=== PATIENT | female | born 1950 | race Caucasian/White ===

== ENCOUNTER → 2018-06-11 11:51 | Outpatient (CLI) | payer MEDICARE, OTHER, SELFPAY ==
--- NOTE | 2018-06-11 11:58 | RAD_ITS ---
STUDY: X-RAY - PARANASAL SINUSES REASON FOR EXAM: Female, 68 years old. Right-sided sinus pain TECHNIQUE: 3 view(s) of the paranasal sinuses were obtained. COMPARISON: None. FINDINGS: Normal visualized frontal, maxillary, ethmoidal and sphenoid sinuses. Normal visualized facial bones. The soft tissue structures are unremarkable. RAD/Sinuses min 3 Views IMPRESSION: Normal x-rays of the paranasal sinuses. Electronically Signed: Dann Burnett MD at 10:28 EST , Service support ,
== END ==
PROVIDERS: Family Provider Family Medicine; PCP Family Medicine; Referring Provider Family Medicine; Visit Provider Family Medicine
DX: J34.89 Other specified disorders of nose and nasal sinuses (principal)
CPT/HCPCS: 70220

== ENCOUNTER → 2018-11-10 | Outpatient (CLI) | payer MEDICARE, OTHER, SELFPAY ==
[2018-11-10 12:42] LABS: ALB/GLOB Ratio 1.3 RATIO (0.9-2.4); AST(SGOT) 14 U/L (15-37); Alanine Aminotransfer ALT/SGPT 28 U/L (13-56); Alkaline Phosphatase 93 U/L (45-117); Anion Gap 7 (5-15); BUN 13 mg/dL (7-18); BUN/Creat Ratio 16.4 RATIO (10-20); Chloride 108 mmol/L (98-107); Cholesterol 194 mg/dL (200); Creatinine, Serum 0.79 mg/dL (0.55-1.02); EST Glomerular Filtration Rate 76 mL/min (>60); Est Glom Filt Rate - Afr Amer 92 mL/min (>60); Globulin 3.1 g/dL (2.2-4.2); Glucose 115 mg/dL (74-106); High Density Lipoprotein 39 mg/dL; Potassium 4.3 mmol/L (3.5-5.1); Protein, Total 7.1 g/dL (6.4-8.2); Sodium Level 142 mmol/L (136-145); Triglycerides 155 mg/dL; Very Low Density Lipoprotein 31 mg/dL (5-40)
== END | disposition home or self-care (01) ==
PROVIDERS: Family Provider Family Medicine; PCP Family Medicine; Referring Provider Family Medicine; Visit Provider Family Medicine
DX: E78.5 Hyperlipidemia, unspecified (principal); R73.02 Impaired glucose tolerance (oral)
CPT/HCPCS: 36415; 80053; 80061

== ENCOUNTER → 2020-05-22 09:24 | Outpatient (CLI) | payer MEDICARE, OTHER, SELFPAY ==
[2020-05-22 13:06] LABS: ALB/GLOB Ratio 1.3 RATIO (0.9-2.4); AST(SGOT) 15 U/L (15-37); Alanine Aminotransfer ALT/SGPT 25 U/L (13-56); Albumin, Serum 4.3 g/dL (3.2-5.0); Alkaline Phosphatase 92 U/L (45-117); Anion Gap 6 (5-15); BUN 13 mg/dL (7-18); BUN/Creat Ratio 16.5 RATIO (10-20); Chloride 108 mmol/L (98-107); Cholesterol 199 mg/dL (200); Creatinine, Serum 0.79 mg/dL (0.55-1.02); EST Glomerular Filtration Rate 76 mL/min (>60); Est Glom Filt Rate - Afr Amer 92 mL/min (>60); Globulin 3.4 g/dL (2.2-4.2); Glucose 124 mg/dL (74-106); High Density Lipoprotein 41 mg/dL; Protein, Total 7.7 g/dL (6.4-8.2); Sodium Level 141 mmol/L (136-145); Triglycerides 129 mg/dL; Very Low Density Lipoprotein 26 mg/dL (5-40)
== END ==
PROVIDERS: PCP Family Medicine; Visit Provider Family Medicine
DX: I10 Essential (primary) hypertension (principal); E78.5 Hyperlipidemia, unspecified
CPT/HCPCS: 36415; 80053; 80061

== ENCOUNTER → 2020-08-27 09:54 | Outpatient (CLI) | payer MEDICARE, OTHER, SELFPAY ==
[2020-08-27 12:44] LABS: Anion Gap 7 (5-15); BUN 11 mg/dL (7-18); BUN/Creat Ratio 13.7 RATIO (10-20); Calcium,Total 9.3 mg/dL (8.5-10.1); Chloride 107 mmol/L (98-107); EST Glomerular Filtration Rate 75 mL/min (>60); Est Glom Filt Rate - Afr Amer 90 mL/min (>60); Glucose 119 mg/dL (74-106); Sodium Level 142 mmol/L (136-145)
== END ==
PROVIDERS: PCP Family Medicine; Referring Provider Family Medicine; Visit Provider Family Medicine
DX: I10 Essential (primary) hypertension (principal)
CPT/HCPCS: 36415; 80048

== ENCOUNTER → 2021-11-25 | Outpatient (CLI) | payer MEDICARE, OTHER, SELFPAY ==
[2021-11-25 12:45] LABS: ALB/GLOB Ratio 1.1 RATIO (0.9-2.4); AST(SGOT) 17 U/L (15-37); Alanine Aminotransfer ALT/SGPT 31 U/L (13-56); Albumin, Serum 3.9 g/dL (3.2-5.0); Alkaline Phosphatase 76 U/L (45-117); Anion Gap 6 (5-15); BUN 11 mg/dL (7-18); BUN/Creat Ratio 13.9 RATIO (10-20); Calcium,Total 9.2 mg/dL (8.5-10.1); Chloride 106 mmol/L (98-107); Cholesterol 183 mg/dL (200); Creatinine, Serum 0.79 mg/dL (0.55-1.02); EST Glomerular Filtration Rate 75 mL/min (>60); Est Glom Filt Rate - Afr Amer 91 mL/min (>60); Globulin 3.4 g/dL (2.2-4.2); Glucose 131 mg/dL (74-106); High Density Lipoprotein 34 mg/dL; Potassium 4.1 mmol/L (3.5-5.1); Protein, Total 7.3 g/dL (6.4-8.2); Sodium Level 139 mmol/L (136-145); Triglycerides 146 mg/dL; Very Low Density Lipoprotein 29 mg/dL (5-40)
== END | disposition home or self-care (01) ==
LOC: MFPLAB 10:47
PROVIDERS: PCP Family Medicine; Visit Provider Family Medicine
DX: E78.5 Hyperlipidemia, unspecified (principal)
CPT/HCPCS: 36415; 80053; 80061

== ENCOUNTER → 2021-11-27 | Outpatient (CLI) | payer MEDICARE, OTHER, SELFPAY ==
--- NOTE | 2021-11-27 09:59 | BD_ITS ---
STUDY: DUAL ENERGY X-RAY ABSORPTIOMETRY / DXA REASON FOR EXAM: Female, 71 years old. [id number]. Patient is postmenopausal. TECHNIQUE: Bone Mineral Density (BMD) measurements of lumbar spine and bilateral hips were obtained. COMPARISON: None. FINDINGS: Lumbar Spine (L1-L4): g/cm2 (1.295) / T-score (2.2) / Z-score (4.5) Findings are suggestive of normal bone density with a low fracture risk. Left Femur Total: g/cm2 (0.917) / T-score (-0.2) / Z-score (1.5) Left Femoral Neck: g/cm2 (0.733) / T-score (-1.0) / Z-score (0.9) Right Femur Total: g/cm2 (0.954) / T-score (0.1) / Z-score (1.8) Right Femoral Neck: g/cm2 (0.762) / T-score (-0.8) / Z-score (1.2) BD/Dexa Bone Density Study IMPRESSION: The patient is considered normal as outlined below according to World Filippo Organization (WHO) criteria with a low fracture risk. Reference Information: The T-score is the number of standard deviations above or below the standard which is normal for young adults at their peak bone mineral density. The World Health Organization (WHO) interprets the T-scores as follows: Above -1 Normal bone density Between -1 and -2.5 Osteopenia Equal to / or below -2.5 Osteoporosis As a practical clinical guideline, osteopenia may be graded as follows: Mild -1 through -1.5 Moderate -1.6 through -2.0 Severe -2.1 through -2.4 The Z-score is the number of standard deviations above or below age-matched controls. A Z-score of less than -1.5 would be considered abnormal. References: 1. NIH Osteoporosis and Related Bone Diseases www osteo.org 2. International Society for Clinical Densitometry www iscd.org 3. National Osteoporosis Foundation www nof.org Electronically Signed: Jimmy Cole MD at 8:10 EDT ,
== END | disposition home or self-care (01) ==
LOC: OPBD 09:51
PROVIDERS: PCP Family Medicine; Referring Provider Family Medicine; Visit Provider Family Medicine
DX: Z00.00 Encounter for general adult medical examination without abnormal findings (principal); Z78.0 Asymptomatic menopausal state
CPT/HCPCS: 77080

== ENCOUNTER 2022-03-01 15:07 | Emergency (ER) | payer MEDICARE, OTHER, SELFPAY ==
[2022-03-01 15:09] VITALS: BP 131/80; PULSE 108; RESP 16; TEMP 37; O2SAT 92; BMI 27.8
--- NOTE | 2022-03-01 16:20 | RAD_ITS ---
STUDY: X-RAY CHEST REASON FOR EXAM: Female, 71 years old. cough TECHNIQUE: PA and lateral views of the chest. COMPARISON: None. FINDINGS: The lungs are clear and expanded. There is no demonstrated pleural abnormality. Normal size heart. Normal mediastinum and clinton. Normal visualized pulmonary arteries. Normal visualized aortic arch and descending thoracic aorta. Normal visualized thoracic spine. Normal visualized ribs, clavicles, and shoulders. There is no demonstrated abnormality of the visualized soft tissue structures of the upper abdomen. RAD/Chest PA and Lateral IMPRESSION: Normal x-ray examination of the chest. Electronically Signed: Brenden Lamar MD at 17:40 EDT ,
--- NOTE | 2022-03-01 16:20 | EKG12_ITS ---
Test Reason : GEN ILLNESS Blood Pressure : / mmHG Vent. Rate : 101 BPM Atrial Rate : 101 BPM P-R Int : 164 ms QRS Dur : 076 ms QT Int : 342 ms P-R-T Axes : 058 015 032 degrees QTc Int : 443 ms Sinus tachycardia Otherwise normal ECG Confirmed by HOLLI PEREIRA, GARY ([id number]), photographic editor SPENCER SCOTT ([id number]) on 03/03/2022 11:16:45 AM Referred By: LYUDMILA Confirmed By:GARY DE LA GARZA MD
--- NOTE | 2022-03-01 16:20 | EX.ED.DYSGE1 ---
HPI History of Present Illness Chief Complaint: General Illness Informant: patient Onset/Context/Timing Onset: Yesterday Narrative Narrative: Yesterday reported sore throat cough fever headaches. Nausea and vomiting x3 today. No hematemesis. No diarrhea. Currently not nauseated. COVID vaccinated with booster. Denies sick contacts. Denies COVID infections in the past. History of hypertension hyperlipidemia. Denies urinary symptoms. Denies chest or abdominal pain. Prior similar symptoms: No PFSH PFSH Medical History HTN (hypertension) Hyperlipemia Home Medications atorvastatin 20 mg tablet 20 mg PO DAILY 03/01/22 [History Last Taken Unknown] dexamethasone 6 mg tablet 6 mg PO DAILY #9 tabs 03/01/22 [Rx Last Taken Unknown] lisinopril 30 mg tablet 30 mg PO DAILY 03/01/22 [History Last Taken Unknown] nirmatrelvir 300 mg (150 mg x2)-ritonavir 100 mg tablet,dose pack(EUA) (Paxlovid) See Rx Instructions PO .COMPLEX #30 tabs 03/01/22 [Rx Last Taken Unknown] ondansetron 4 mg disintegrating tablet 4 mg PO Q6H PRN nausea and vomiting #10 tabs 03/01/22 [Rx Last Taken Unknown] Allergy/AdvReac Type Severity Reaction Status Date / Time ciprofloxacin [From Cipro] Allergy Hives Verified 03/01/22 15:08 Social History Smoking Status: Never smoker ROS ROS ED Constitutional Constitutional ED: Reports fever(s); Denies chills or sweats Eyes Eyes: Denies change in vision ENT ENT ED: Reports sore throat; Denies dysphagia Cardiovascular Cardiovascular: Denies chest pain, leg edema, palpitations or racing heartbeat Respiratory/Chest Respiratory/Chest: Reports cough; Denies dyspnea or dyspnea on exertion Gastrointestinal Gastrointestinal: Reports nausea and vomiting; Denies abdominal pain or diarrhea Genitourinary Genitourinary ED: Denies dysuria, hematuria or urinary frequency Musculoskeletal Musculoskeletal: Denies back pain, extremity pain or neck pain Integumentary Denies rash or wounds Neurologic Neurologic: Reports headache(s); Denies paresthesias or weakness EXAM Physical Exam Const Vital Signs: 03/01/22 15:09 03/01/22 15:40 03/01/22 16:33 Temperature 98.6 F 98.6 F Temperature Source Temporal Oral Pulse Rate 108 H 91 Respiratory Rate 16 17 Respiratory Effort Short of Breath Blood Pressure 131/80 H 131/80 H Blood Pressure Mean 97 97 Pulse Ox 92 95 Oxygen Delivery Method Room Air Room Air 03/01/22 19:07 Temperature Temperature Source Pulse Rate 85 Respiratory Rate Respiratory Effort Blood Pressure 110/76 Blood Pressure Mean 87 Pulse Ox 94 Oxygen Delivery Method Room Air Positive well nourished and well developed General Appearance ED: well developed and NAD HEENT HEENT Narrative: Mild dry mucosal membranes normocephalic and atraumatic Eyes PERRL, EOMs intact bilaterally and conjunctivae normal General Eye ED: Yes normal appearance of both eyes Neck no lymphadenopathy and supple General: Negative for tenderness Chest Wall Chest: Negative for tenderness Resp normal respiratory effort and normal air movement Effort and Inspection: symmetric chest movement; Negative for respiratory distress Cardio regular rhythm and no murmurs Rate: tachycardic Peripheral Pulses: pulses 2+ throughout GI normal to inspection, nondistended, normoactive bowel sounds and non-tender Palpation: Negative for guarding or rebound tenderness present Back/Spine no CVA tenderness and no thoracic nor lumbar tenderness Extremity normal to inspection General Extremety ED: Negative for edema or tenderness General Extremity: Negative for edema Neuro oriented x3 and no sensory deficits noted Sensorium / Orientation: awake and alert Skin no rashes or lesions noted and no wounds MDM MDM MDM Narrative Medical decision making narrative: Patient presented with COVID symptoms. Pulse ox 92% on arrival. Chest x-ray reviewed by myself and read by radiology shows no acute process. COVID test returned positive. She was ambulated with her pulse ox remained at 94%. Heart rate improved with fluids. She is within the window for treatment for her COVID. Discussed treatment with her she would like to pursue. With her pulse ox less than 94 dexamethasone was started she is also given meds to beds with Paxlovid. She will hold her statin to avoid myalgias. Return precautions discussed. All questions were answered. Lab Data Attestation: I reviewed the patient's lab results. Labs: Laboratory Results - last 24 hr 03/01/22 03/01/22 15:37 15:37 WBC 6.1 RBC 4.08 L Hgb 12.8 Hct 37.0 MCV 90.7 MCH 31.4 MCHC 34.6 RDW Std Deviation 39.6 RDW Coeff of Joseph 11.9 Plt Count 150 MPV 10.8 Immature Gran % (Auto) 0.300 Neut % (Auto) 84.8 H Lymph % (Auto) 4.1 L [place] % (Auto) 9.6 Eos % (Auto) 0.5 Baso % (Auto) 0.7 Absolute Neuts (auto) 5.2 Absolute Lymphs (auto) 0.25 L Nucleated RBC % 0 Differential Comment SEE COMMENT Platelet Estimate ADEQUATE RBC Morphology N CHROM Anisocytosis RARE Macrocytosis RARE Sodium 139 Potassium 3.6 Chloride 105 Carbon Dioxide 25.0 Anion Gap 9 BUN 10 Creatinine 0.91 Estim Creat Clear Calc 43.55 Est GFR (MDRD) Af Amer 78 Est GFR (MDRD) Non-Af 65 BUN/Creatinine Ratio 11.0 Glucose 157 H Calcium 9.0 Total Bilirubin 0.60 AST 15 ALT 22 Alkaline Phosphatase 69 Total Protein 6.7 Albumin 3.7 Globulin 3.0 Albumin/Globulin Ratio 1.2 Radiography Diagnostic Testing: Clinical Impression(s) from Imaging Studies Chest X-Ray 03/01/22 16:20 IMPRESSION: Normal x-ray examination of the chest. Electronically Signed: Brenden Lamar MD at 17:40 EDT , EKG Initial EKG: Comments: Sinus rate of 101, no ST or T wave changes. Discharge Plan Triage Chief Complaint: General Illness ED Provider: Timbo Shah Dx/Rx/DC Orders Clinical Impression: COVID-19 virus infection, Cough, Nausea & vomiting Instructions: Coronavirus Disease 2019 (COVID-19): Caring for Yourself or Others Prescriptions: New Paxlovid (EUA) 300 mg (150 mg x 2)-100 mg tablets,dose pack See Rx Instructions .ROUTE .COMPLEX Qty: 30 0RF Rx Instructions: take TWO 150 mg tablets of nirmatrelvir with ONE 100 mg tablet of ritonavir twice daily for 5 days dexamethasone 6 mg tablet 6 mg PO DAILY Qty: 9 0RF ondansetron 4 mg tablet,disintegrating 4 mg PO Q6H PRN (Reason: nausea and vomiting) Qty: 10 0RF No Action atorvastatin 20 mg tablet 20 mg PO DAILY Label Comments: TAKE 1 TABLET BY MOUTH EVERY DAY lisinopril 30 mg tablet 30 mg PO DAILY Label Comments: TAKE 1 TABLET BY MOUTH EVERY DAY Primary Care Provider: Brennon Lloyd Referrals: Brennon Lloyd MD [Primary Care Provider] - 1 Week if not improving Activity Restrictions/Additional Instructions: Take medications as prescribed. Monitor for worsening symptoms. Return if any worsening respiratory distress. May benefit if you obtain a pulse oximeter to check your pulse ox if it drops below 88% for return. Hold your atorvastatin while taking Paxlovid. Disposition Disposition: Home, Self Care Discharge Date/Time: 03/01/22 19:19
[2022-03-01 16:33] VITALS: BP 131/80; PULSE 91; RESP 17; TEMP 37; O2SAT 95
[2022-03-01 16:41] LABS: Absolute Lymphocyte Count 0.25 X10^3/uL (0.83-4.51); Absolute Neutrophil Count 5.2 X10^3/uL (2.0-7.7); Basophil# 0.04 X10^3/uL; Basophil% 0.7 % (0-1); Eosinophil# 0.03 X10^3/uL; Eosinophils% 0.5 % (0-5); Hemoglobin 12.8 g/dL (12.0-15.0); Lymphocyte # 0.25 X10^3/ul (0.83-4.51); Lymphocyte % 4.1 % (19-41); Mean Corp Hgb Conc 34.6 g/dL (32-36); Mean Corpuscular Hgb 31.4 pg (27.0-32.0); Mean Corpuscular Volume 90.7 fL (81-99); Mean Platelet Vol. 10.8 fl (6.2-12.0); Monocyte# 0.58 X10^3/uL; Monocyte% 9.6 % (0-10); NRBC Flagged by Analyzer 0 % (0-5); Neutrophil # 5.15 X10^3/uL (2.7-7.7); Neutrophil % 84.8 % (47-70); POSITIVE DIFFERENTIAL YES; Platelet Count 150 K/mm3 (150-450); RBC Distribution Width CV 11.9 % (11.6-14.6); RBC Distribution Width SD 39.6 fl (35.1-43.9); Red Blood Count 4.08 M/mm3 (4.2-5.4); White Blood Count 6.1 K/mm3 (4.4-11.0)
[2022-03-01 16:42] LABS: Differential Indicated SCAN CRITERIA MET
[2022-03-01] MEDS: 0.9% Normal Saline 1,000 ML 1000 ML IV (16:48)
[2022-03-01 16:55] LABS: ALB/GLOB Ratio 1.2 RATIO (0.9-2.4); AST(SGOT) 15 U/L (15-37); Alanine Aminotransfer ALT/SGPT 22 U/L (13-56); Albumin, Serum 3.7 g/dL (3.2-5.0); Alkaline Phosphatase 69 U/L (45-117); Anion Gap 9 (5-15); BUN 10 mg/dL (7-18); Chloride 105 mmol/L (98-107); Creatinine, Serum 0.91 mg/dL (0.55-1.02); EST Glomerular Filtration Rate 65 mL/min (>60); Est Glom Filt Rate - Afr Amer 78 mL/min (>60); Estimated Creatinine Clearance 43.55 ml/min; Glucose 157 mg/dL (74-106); Potassium 3.6 mmol/L (3.5-5.1); Protein, Total 6.7 g/dL (6.4-8.2); Sodium Level 139 mmol/L (136-145)
[2022-03-01 17:20] LABS: Anisocytosis RARE; Macrocytosis RARE; Platelet Estimate ADEQUATE (ADEQ); Red Cell Morphology N CHROM NORMAL (NORM C&C)
[2022-03-01] MEDS: Acetaminophen 325 MG Tablet 1000 MG PO (17:33)
[2022-03-01] MEDS: Ondansetron 4 MG/2 ML Vial IV (17:33)
[2022-03-01] MEDS: dexAMETHasone 4 MG Tablet 6 MG PO (19:02)
[2022-03-01 19:07] VITALS: BP 110/76; PULSE 85; O2SAT 94
== END 2022-03-01 19:19 | disposition home or self-care (01) ==
PROVIDERS: Emergency Provider Emergency Medicine; PCP Family Medicine; Visit Provider Emergency Medicine
DX: U07.1 COVID-19 (principal); E78.5 Hyperlipidemia, unspecified; I10 Essential (primary) hypertension; Z79.899 Other long term (current) drug therapy; R11.2 Nausea with vomiting, unspecified; R05.9 Cough, unspecified
CPT/HCPCS: 71046; 80053; 85025; 87811; 93005; 96361; 96374; 99284; J7030; A4216; J2405

== ENCOUNTER → 2023-09-02 | Outpatient (CLI) | payer MEDICARE, OTHER, SELFPAY ==
[2023-09-02 13:00] LABS: ALB/GLOB Ratio 1.1 RATIO (0.9-2.4); AST(SGOT) 31 U/L (15-37); Alanine Aminotransfer ALT/SGPT 59 U/L (13-56); Albumin, Serum 3.9 g/dL (3.2-5.0); Alkaline Phosphatase 92 U/L (45-117); Anion Gap 4 (5-15); BUN 12 mg/dL (7-18); Calcium,Total 9.1 mg/dL (8.5-10.1); Chloride 107 mmol/L (98-107); Cholesterol 201 mg/dL (200); Creatinine, Serum 0.86 mg/dL (0.55-1.02); EST Glomerular Filtration Rate 69 mL/min (>60); Est Glom Filt Rate - Afr Amer 83 mL/min (>60); Globulin 3.4 g/dL (2.2-4.2); Glucose 130 mg/dL (74-106); High Density Lipoprotein 32 mg/dL; Protein, Total 7.3 g/dL (6.4-8.2); Sodium Level 139 mmol/L (136-145); Thyroid Stim Hormone (TSH) 1.38 uIU/mL (0.358-3.74); Triglycerides 174 mg/dL; Very Low Density Lipoprotein 35 mg/dL (5-40)
== END | disposition home or self-care (01) ==
LOC: MFPLAB 11:03
PROVIDERS: PCP Family Medicine; Visit Provider Family Medicine
DX: E11.9 Type 2 diabetes mellitus without complications (principal)
CPT/HCPCS: 36415; 80053; 80061; 84443

== ENCOUNTER → 2024-09-07 | Outpatient (CLI) | payer MEDICARE, OTHER, SELFPAY ==
[2024-09-07 17:59] LABS: ALB/GLOB Ratio 1.7 RATIO (0.9-2.4); AST(SGOT) 21 U/L (<=31); Alanine Aminotransfer ALT/SGPT 23 U/L (<=34); Albumin, Serum 4.5 g/dL (3.4-4.8); Alkaline Phosphatase 86 U/L (35-104); Anion Gap 13 (5-15); BUN 9 mg/dL (4-19); BUN/Creat Ratio 12.9 RATIO (10-20); Calcium,Total 9.4 mg/dL (7.6-11.0); Chloride 104 mmol/L (98-108); Cholesterol 184 mg/dL (<=200); Creatinine, Serum 0.69 mg/dL (0.70-1.20); EST Glomerular Filtration Rate 90 (>60); Globulin 2.6 g/dL (2.2-4.2); Glucose 129 mg/dL (70-99); High Density Lipoprotein 41 mg/dL; Low Density Lipoprotein Calc. 114 mg/dL; Protein, Total 7.1 g/dL (5.9-8.4); Sodium Level 139 mmol/L (133-145); Total Bilirubin 0.58 mg/dL (0.00-1.30); Triglycerides 141 mg/dL; Very Low Density Lipoprotein 28 mg/dL (5-40); cholesterol:hdl ratio screen 4.44
[2024-09-07 19:26] LABS: Microalbumin,Random Urine < 12.0 mg/L (NO RANGE EST.)
[2024-09-08 00:08] LABS: Microalbumin:Creatinine Ratio UNABLE TO CALCULATE mg/g CRE
== END | disposition home or self-care (01) ==
LOC: MFPLAB 11:39
PROVIDERS: PCP Family Medicine; Referring Provider Family Medicine; Visit Provider Family Medicine
DX: E11.9 Type 2 diabetes mellitus without complications (principal)
CPT/HCPCS: 36415; 80053; 80061; 82043; 82570; 84443

== ENCOUNTER → 2024-10-03 | Outpatient (CLI) | payer MEDICARE, OTHER, SELFPAY ==
--- NOTE | 2024-10-03 16:07 | MRI_ITS ---
PROCEDURE: BRAIN W/WO CONTRAST 10/03/2024 REASON FOR EXAM: HEARING LOSS TECHNIQUE: Brain MRI without and with intravenous contrast with additional dedicated imaging of the IACs. CONTRAST: 14 CC of Clariscan were injected intravenously. COMPARISON: None. FINDINGS: Moderate effusion in the right middle ear cavity. Moderate effusion in the right mastoid air cells. No mass lesion is identified. No abnormal postcontrast enhancement is noted. Multiple T2 hyperintense foci in the periventricular and subcortical white matter suggestive of moderate chronic ischemic white matter disease. Benign chronic mucus retention cyst in the right maxillary sinus measuring 1 cm. The ventricles and extra-axial spaces are normal for the patient's age. No abnormality is identified in the basal ganglia and thalami. No abnormality is identified in the brainstem. Unremarkable cerebellum. There is no midline shift or brain herniation. There is no demonstrated extra-axial, intraparenchymal, or intraventricular hemorrhage. There are no abnormal intra-or extra-axial fluid collections. There are no areas of restricted diffusion to suggest acute ischemia. The cerebellopontine angles, internal auditory canals and the cisternal portions of the accoustico - facial nerves are unremarkable. Unremarkable exam of the skull. Normal soft tissue structures. The remaining visualized paranasal sinuses and left mastoid air cells are clear. The visualized portions of the orbits are unremarkable. No abnormal postcontrast enhancement is noted. MRI/Brain W/WO Contrast IMPRESSION: 1. Moderate effusion in the right middle ear cavity. 2. Moderate effusion in the right mastoid air cells. 3. No mass lesion is identified. 4. No abnormal postcontrast enhancement is noted. 5. Multiple T2 hyperintense foci in the periventricular and subcortical white m atter suggestive of moderate chronic ischemic white matter disease. 6. Benign chronic mucus retention cyst in the right maxillary sinus measuring 1 cm. Reading Location[facility]
== END | disposition home or self-care (01) ==
LOC: MRI 15:40
PROVIDERS: PCP Family Medicine; Referring Provider Family Medicine; Visit Provider Family Medicine
DX: H90.A11 Conductive hearing loss, unilateral, right ear with restricted hearing on the contralateral side (principal)
CPT/HCPCS: 70553; A9575

== ENCOUNTER → 2024-10-26 | Outpatient (CLI) | payer MEDICARE, OTHER, SELFPAY ==
--- NOTE | 2024-10-26 07:55 | EKG12_ITS ---
Test Reason : PREOP Blood Pressure : */* mmHG Vent. Rate : 66 BPM Atrial Rate : 66 BPM P-R Int : 158 ms QRS Dur : 80 ms QT Int : 416 ms P-R-T Axes : 39 7 19 degrees QTcB Int : 436 ms Normal sinus rhythm Normal ECG Confirmed by Drew Beck ([id number]), graphics editor NADEGE TRUJILLO ([id number]) on 10/28/2024 12:12:33 PM Referred By: Rafa Khanna Confirmed By: Drew Beck
[2024-10-26 09:35] LABS: Hematocrit 41.8 % (37-47); Hemoglobin 14.4 g/dL (12.0-15.0); Mean Corp Hgb Conc 34.4 g/dL (32-36); Mean Corpuscular Hgb 31.5 pg (27.0-32.0); Mean Corpuscular Volume 91.5 fL (81-99); Mean Platelet Vol. 10.9 fl (6.2-12.0); Platelet Count 205 K/mm3 (150-450); RBC Distribution Width CV 12.3 % (11.6-14.6); Red Blood Count 4.57 M/mm3 (4.2-5.4); White Blood Count 6.8 K/mm3 (4.4-11.0)
[2024-10-26 10:24] LABS: Anion Gap 11 (5-15); BUN 18 mg/dL (4-19); BUN/Creat Ratio 20.7 RATIO (10-20); Calcium,Total 9.4 mg/dL (7.6-11.0); Carbon Dioxide 24.9 mmol/L (21.0-32.0); Chloride 104 mmol/L (98-108); Creatinine, Serum 0.86 mg/dL (0.70-1.20); EST Glomerular Filtration Rate 70 (>60); Glucose 130 mg/dL (70-99); Potassium 4.4 mmol/L (3.3-5.1); Sodium Level 140 mmol/L (133-145)
== END | disposition home or self-care (01) ==
LOC: PSN 07:53
PROVIDERS: PCP Family Medicine; Referring Provider Otolaryngology; Visit Provider Otolaryngology
DX: Z01.812 Encounter for preprocedural laboratory examination (principal); Z01.810 Encounter for preprocedural cardiovascular examination
CPT/HCPCS: 36415; 80048; 85027; 93005

== ENCOUNTER → 2024-12-12 | Outpatient (CLI) | payer MEDICARE, OTHER, SELFPAY ==
[2024-12-12 16:37] LABS: Microalbumin,Random Urine < 12.0 mg/L (NO RANGE EST.); Microalbumin:Creatinine Ratio UNABLE TO CALCULATE mg/g CRE
== END | disposition home or self-care (01) ==
LOC: LABSPEC 15:23
PROVIDERS: PCP Family Medicine; Referring Provider Family Medicine; Visit Provider Family Medicine
DX: E11.9 Type 2 diabetes mellitus without complications (principal)
CPT/HCPCS: 82043; 82570

== ENCOUNTER → 2024-12-27 | Outpatient (CLI) | payer MEDICARE, OTHER, SELFPAY ==
--- NOTE | 2024-12-27 15:33 | BI_ITS ---
EXAM: SCRN MAMM (CAD)W/EMERSON BILAT DATE: 12/27/2024 CLINICAL HISTORY: F, Age 74 y/o , SCREENING TECHNIQUE: SCRN MAMM (CAD)W/EMERSON BILAT COMPARISON: None available FINDINGS: TISSUE DENSITY: The breasts are heterogeneously dense, which may obscure small masses. Bilateral Breast Mammographic Findings: Right breast: There is a mass in the central outer right breast posterior depth. There is an asymmetry in the central right breast mid depth on the right MLO view. Left breast: No suspicious masses, calcifications or other abnormalities are identified. BI/SCRN MAMM (CAD)W/EMERSON BILAT IMPRESSION: Additional diagnostic imaging is recommended of the right breast. No mammographic evidence of malignancy in the left breast. OVERALL FINAL ASSESSMENT BI-RADS 0: INCOMPLETE - NEED ADDITIONAL IMAGING EVALUATION. RECOMMENDATION: Additional Views obtained/call backs A letter with findings and recommendations will be mailed to the patient. Reading Location: [id number]
--- NOTE | 2024-12-27 15:47 | BD_ITS ---
PROCEDURE: DEXA BONE DENSITY STUDY 12/27/2024 REASON FOR EXAM: F, age 74 y/o . Postmenopausal. TECHNIQUE: DEXA BONE DENSITY STUDY COMPARISON: Prior study dated November 27, 2021. FINDINGS: BMD and T-SCORES Lumbar spine: 1.274 g/cm2, T-score 2.0 Levels: L1 through L4 Change from prior: Loss of 1.6%. Left femoral neck: 0.732 g/cm2, T-score -1.1 Femoral neck comparison data not recommended for monitoring change. Left total hip: 0.905 g/cm2, T-score -0.3 Change from prior: Loss of 1.3%. Right femoral neck: 0.764 g/cm2, T-score -0.8 Femoral neck comparison data not recommended for monitoring change. Right total hip: 0.897 g/cm2, T-score -0.4 Change from prior: Loss of 5.9%. The World Health Organization has defined the following categories based on bone density: Normal bone density: T-score equal to or greater than -1.0 Osteopenia: T-score between -1.0 and -2.5 Osteoporosis: T-score equal to or less than -2.5 The patient does meet the pharmacological treatment recommendations for prevention of osteoporosis. BD/Dexa Bone Density Study IMPRESSION: OSTEOPENIA. Recommend follow-up as clinically warranted. Reading Location: [place] [id number]
== END | disposition home or self-care (01) ==
LOC: OPBD 15:31
PROVIDERS: PCP Family Medicine; Referring Provider Family Medicine; Visit Provider Family Medicine
DX: Z00.00 Encounter for general adult medical examination without abnormal findings (principal); Z12.31 Encounter for screening mammogram for malignant neoplasm of breast; M85.89 Other specified disorders of bone density and structure, multiple sites
CPT/HCPCS: 77063; 77067; 77080

== ENCOUNTER → 2025-01-04 | Outpatient (CLI) | payer MEDICARE, OTHER, SELFPAY ==
--- NOTE | 2025-01-04 09:32 | BI_ITS ---
EXAM: DIAG MAMM W/CAD, UNILAT; RT BRST UNILAT EMERSON ADD-ON; BREAST LIMITED UNILATERAL 01/04/2025 CLINICAL HISTORY: 74-year-old female presents for follow-up of the right breast findings seen on examination of 12/27/2024. There is no family history of breast cancer. TECHNIQUE: DIAG MAMM W/CAD, UNILAT; RT BRST UNILAT EMERSON ADD-ON; BREAST LIMITED UNILATERAL. COMPARISON: Prior exam(s) dated 12/27/2024. FINDINGS: MAMMOGRAM: TISSUE DENSITY: There are scattered areas of fibroglandular density. Unilateral Right Breast Mammographic Findings: 1. Follow-up examination performed for the mass in the right breast seen on examination of 12/27/2024. On the present examination, the mass in the central outer right breast at posterior depth persist. 2. Follow-up examination performed for the asymmetry in the right breast seen on examination of 12/27/2024. On the present examination, the asymmetry in the central right breast at mid depth partially effaces. ULTRASOUND: 1. There is a cystic mass with a thick internal septation in the right breast at 8 o'clock 7 cm from the nipple, measuring 0.4 x 0.3 x 0.3 cm. This is the likely correlate for the mammographic finding. 2. There is a dilated ducts in the retroareolar right breast, this is the likely correlate for the mammographic finding. BI/Rt Brst Unilat Emerson Add-On IMPRESSION: 1. The cystic mass with thick internal septation in the right breast is suspic ious. Recommend tissue sampling with ultrasound-guided core needle biopsy. OVERALL FINAL ASSESSMENT BI-RADS 4: SUSPICIOUS ABNORMALITY. RECOMMENDATION: Biopsy Recommended A letter with findings and recommendations will be mailed to the patient. Reading Location: [id number]
--- NOTE | 2025-01-04 09:32 | BI_ITS ---
EXAM: DIAG MAMM W/CAD, UNILAT; RT BRST UNILAT EMERSON ADD-ON; BREAST LIMITED UNILATERAL 01/04/2025 CLINICAL HISTORY: 74-year-old female presents for follow-up of the right breast findings seen on examination of 12/27/2024. There is no family history of breast cancer. TECHNIQUE: DIAG MAMM W/CAD, UNILAT; RT BRST UNILAT EMERSON ADD-ON; BREAST LIMITED UNILATERAL. COMPARISON: Prior exam(s) dated 12/27/2024. FINDINGS: MAMMOGRAM: TISSUE DENSITY: There are scattered areas of fibroglandular density. Unilateral Right Breast Mammographic Findings: 1. Follow-up examination performed for the mass in the right breast seen on examination of 12/27/2024. On the present examination, the mass in the central outer right breast at posterior depth persist. 2. Follow-up examination performed for the asymmetry in the right breast seen on examination of 12/27/2024. On the present examination, the asymmetry in the central right breast at mid depth partially effaces. ULTRASOUND: 1. There is a cystic mass with a thick internal septation in the right breast at 8 o'clock 7 cm from the nipple, measuring 0.4 x 0.3 x 0.3 cm. This is the likely correlate for the mammographic finding. 2. There is a dilated ducts in the retroareolar right breast, this is the likely correlate for the mammographic finding. BI/DIAG MAMM W/CAD, UNILAT IMPRESSION: 1. The cystic mass with thick internal septation in the right breast is suspic ious. Recommend tissue sampling with ultrasound-guided core needle biopsy. OVERALL FINAL ASSESSMENT BI-RADS 4: SUSPICIOUS ABNORMALITY. RECOMMENDATION: Biopsy Recommended A letter with findings and recommendations will be mailed to the patient. Reading Location: [id number]
== END | disposition home or self-care (01) ==
LOC: OPBI 09:29
PROVIDERS: PCP Family Medicine; Referring Provider Family Medicine; Visit Provider Family Medicine
DX: N63.13 Unspecified lump in the right breast, lower outer quadrant (principal)
CPT/HCPCS: 76642; 77061; 77065; G0279

== ENCOUNTER → 2025-01-19 | Outpatient (CLI) | payer MEDICARE, OTHER, SELFPAY ==
--- NOTE | 2025-01-19 | BRBX_PTH ---
PATIENT: MILIND AMADOR LOC: [facility] U#:[id number] AGE/SX: 74/F ROOM: RE01/19/[address]: Dr. Malathi Trujillo MD : [id number] BED: DIS: 01/19/2025 SPEC #: [id number] RECD: 01/19/25 13:33 STATUS: REGINA RELloyd #: [id number] RODO: 01/19/25 00:[address]: Malathi Trujillo DEPT: SURGICAL PATHOLOGY RECD BY: Quintin Lopez ENTERED: 01/19/25 14:54 SP TYPE: BREAST BX OTHR DR: Dr. Dylon Lloyd MD Tissues: A - Right breast, NOS Procedures: Surgery Specimen Level IV HEADER OPERATION: Ultrasound guided breast biopsy PRE-OP DIAGNOSIS: Right breast mass TISSUE SUBMITTED: A- Right breast mass, 8o'clock, 7cm from nipple MICROSCOPIC DIAGNOSIS A. Breast, right, 8 o'clock, 7 CMFN, core biopsy: - Benign breast tissue. MICROSCOPIC DESCRIPTION Slides are reviewed. GROSS DESCRIPTION A. Received in formalin labeled with the patient's name and date of . Designated as RT breast BX are are 2 jesus-yellow tissue cores, 1.1 cm and 1.3 cm in length by 0.2 cm in diameter. Entirely submitted in 1 cassette. Cold ischemic time: <1 minuteFormalin fixation time: 6 hours, 4 minutes MD 01/19/2025 CPT:78890
--- NOTE | 2025-01-19 12:07 | US_ITS ---
PROCEDURE: US BREAST BIOPSY 1ST LESION 01/19/2025 REASON FOR EXAM: F, Age 74 y/o , RIGHT BREAST MASS TECHNIQUE: US BREAST BIOPSY 1ST LESION COMPARISON: Prior exam(s) dating back to prior ultrasound dated January 04, 2025.. FINDINGS: Under direct sonographic guidance, the surgeon performed core biopsies of the hypoechoic nodule at the 8 o'clock position of the breast at 7 cm from the nipple. US/US Breast Biopsy 1st Lesion IMPRESSION: OVERALL FINAL ASSESSMENT: BIRADS 11 WAITING PATHOLOGY RECOMMENDATION: Routine annual follow-up in 1 Year Reading Location: [id number]
--- NOTE | 2025-01-19 13:34 | OP.PCM_ITS ---
Operative Report (Standard) Operative Information Date of Procedure: 01/19/25 Pre-Operative Diagnosis: Right breast mass Post-Operative Diagnosis: Same Surgery/Procedure Performed: Ultrasound-guided right breast biopsy computer numerical control grinder: No Type of Anesthesia: Local Procedure Start Time: 12:40 Procedure Stop Time: 12:50 Select all DRAINS/GRAFTS/IMPLANTS that apply: Implanted device Implanted device details: BARD dual ultra-ribbon clip Estimated Blood Loss: < 5 cc Specimen collected: Yes Description of specimen(s) removed: Right breast mass 8:00 7 cm from nipple Description of surgery: Procedure: Right ultrasound-guided core biopsy Indications: 74year-old female with cystic with thick internal septation nodule at 8:00 7 cm from the nipple in the right breast. Risk benefits were discussed the patient and she elected to proceed with ultrasound guided core biopsy with clip placement Description of procedure: Patient was brought into the ultrasound room in the right breast was marked. A timeout was completed verifying correct patient, procedure, site, specially, prior to beginning procedure. The right breast was prepped and draped in usual sterile fashion and using local anesthesia was obtained with 1% lidocaine with epi. The lesion was located with the ultrasound. Small incision was made with 11 blade to introduced the mammotome through the skin. Under ultrasound guidance multiple core samples were obtained using then 13-gauge mammotome and sent in formalin for pathology. The BARD dual ultraribbon clip was then deployed into the biopsy cavity under ultrasound guidance and a picture was taken. Upon completion procedure hemostasis was obtained and a Steri-Strip and OpSite were placed. Patient was then taken to the mammography suite for clip verification. The clip was verified. The patient tolerated the procedure well and was discharged from the breast imaging department good condition. Surgical Findings: See operative report Complications Complications: No
== END | disposition home or self-care (01) ==
LOC: OPUS 12:06
PROVIDERS: PCP Family Medicine; Referring Provider Surgery; Visit Provider Surgery
DX: R92.8 Other abnormal and inconclusive findings on diagnostic imaging of breast (principal); N63.10 Unspecified lump in the right breast, unspecified quadrant
CPT/HCPCS: 19084; 19083; 88305